=== PATIENT | female | born 1960 | race American Indian/Alaskan Native ===

== ENCOUNTER 2017-07-31 22:38 | Observation (INO) | payer MEDICARE, OTHER ==
[2017-07-31 22:52] VITALS: BMI 31.6
--- NOTE | 2017-07-31 23:16 | ED PDOC ---
Arrival/HPI - General Chief Complaint: Upper Extremity Problem/Injury Time Seen by Provider: 07/31/17 22:50 Historian: Patient - History of Present Illness Narrative History of Present Illness (Text): 07/31/17 23:13 A 57 year old female whose past medical history includes, hypertension and lung CA, presents to the emergency department with 1 week duration neck, upper back, and right arm pain. She denies fevers, chills, headache, cough, contrary to triage no abdominal pain, nausea, vomiting, diarrhea, chest pain, shortness of breath, or any other complaint. Time/Duration: 1 week Symptom Onset: Sudden Symptom Course: Unchanged Activities at Onset: Rest, Light Context: Home Past Medical History - Provider Review Nursing Documentation Reviewed: Yes - Cardiac Hx Hypertension: Yes - Pulmonary Hx Respiratory Disorders: No Other/Comment: hx lung ca - Neurological Hx Neurological Disorder: No - HEENT Hx HEENT Disorder: No - Renal Hx Renal Disorder: No - Endocrine/Metabolic Hx Endocrine Disorders: No - Hematological/Oncological Hx Blood Disorders: No - Integumentary Hx Dermatological Disorder: No - Musculoskeletal/Rheumatological Hx Musculoskeletal Disorders: No - Gastrointestinal Hx Gastrointestinal Disorders: No - Genitourinary/Gynecological Hx Genitourinary Disorders: No - Psychiatric Hx Psychophysiologic Disorder: No Hx Substance Use: No - Surgical History Hx Section: Yes Hx Cholecystectomy: Yes Other/Comment: Hx partial lung removal, lung ca - Anesthesia Hx Anesthesia: Yes Hx Anesthesia Reactions: No Family/Social History - Physician Review Nursing Documentation Reviewed: Yes Family/Social History: denies: CAD/AL Smoking Status: Never Smoked Hx Alcohol Use: No Hx Substance Use: No Allergies/Home Meds Allergies/Adverse Reactions: Allergies No Known Allergies Allergy (Verified 07/31/17 22:51) Home Medications: Home Meds Medication Instructions Recorded Confirmed Lisinopril [Zestril] 20 mg PO DAILY 07/31/17 07/31/17 Review of Systems - Physician Review All systems were reviewed & negative as marked: Yes - Review of Systems Constitutional: absent: Fevers, Night Sweats Respiratory: absent: SOB, Cough Cardiovascular: absent: Chest Pain Gastrointestinal: absent: Abdominal Pain, Diarrhea, Nausea, Vomiting Musculoskeletal: Back Pain, Neck Pain, Other (right arm pain) Neurological: absent: Headache, Dizziness Physical Exam Vital Signs Temp Pulse Resp BP Pulse Ox 08/01/17 01:19 64 16 124/69 99 07/31/17 22:52 98.6 F 72 18 143/83 98 07/31/17 22:50 98.6 F 72 18 143/83 98 Appearance: Positive for: Well-Appearing, Non-Toxic, Comfortable Pain Distress: None Mental Status: Positive for: Alert and Oriented X 3 - Systems Exam Head: Present: Atraumatic Pupils: Present: PERRL Mouth: Present: Moist Mucous Membranes Neck: Present: Normal Range of Motion Respiratory/Chest: Present: Clear to Auscultation. No: Respiratory Distress, Accessory Muscle Use Cardiovascular: Present: Regular Rate and Rhythm Abdomen: No: Tenderness, Distention Back: Present: Normal Inspection Upper Extremity: Present: NORMAL PULSES Lower Extremity: No: Edema Neurological: Present: GCS=15, Motor Func Grossly Intact, Normal Sensory Function, Other (no focal deficits) Skin: Present: Warm, Dry Psychiatric: Present: Alert, Oriented x 3 Medical Decision Making ED Course and Treatment: 07/31/17 23:11 Impression: A 57 year old female with 1 week duration neck, upper back, and right arm pain. Plan: -- EKG -- Chest X-Ray -- Labs -- Flexeril and Toradol -- Reassess and disposition Progress Notes: EKG: Ordered, reviewed, and independently interpreted the EKG. Rate : 64 BPM Rhythm : NSR Interpretation : Normal axis. Normal intervals. No acute ischemia. - Lab Interpretations Lab Results: 07/31/17 23:10 07/31/17 23:10 Lab Results 07/31/17 23:59: Urine Osmolality 276, Ur Random Sodium 45 07/31/17 23:59: Serum Osmolality 261 L 07/31/17 23:10: WBC 9.8, RBC 3.80, Hgb 11.8 L, Hct 34.3 L, MCV 90.3, MCH 31.1, MCHC 34.4, RDW 12.8, Plt Count 284, MPV 10.7, Gran % 58.9, Lymph % (Auto) 28.4, Heard % (Auto) 10.2 H, Eos % (Auto) 2.0, Baso % (Auto) 0.5, Gran # 5.80, Lymph # 2.8, Heard # 1.0 H, Eos # 0.2, Baso # 0.05 07/31/17 23:10: Sodium 122 L, Potassium 4.0, Chloride 86 L, Carbon Dioxide 24, Anion Gap 16, BUN 19, Creatinine 1.3, Est GFR ( Amer) 51, Est GFR (Non- Af Amer) 42, Random Glucose 85, Calcium 9.1, Total Bilirubin 0.6, AST 28, ALT 27 , Alkaline Phosphatase 80, Troponin I < 0.01, Total Protein 7.6, Albumin 4.3, Globulin 3.3, Albumin/Globulin Ratio 1.3 I have reviewed the lab results: Yes - RAD Interpretation Radiology Orders: 07/31/17 23:12 CHEST PORTABLE [RAD] Stat - EKG Interpretation Interpreted by ED Physician: Yes Type: 12 lead EKG - Medication Orders Current Medication Orders: Discontinued Medications Cyclobenzaprine HCl (Flexeril) 10 mg PO STAT STA Stop: 07/31/17 23:13 Last Admin: 07/31/17 23:27 Dose: 10 mg Heparin Sodium (Porcine) (Heparin) 5,000 units SC Q8 [facility] PRN Reason: Protocol Last Admin: 08/02/17 06:46 Dose: 5,000 units Sodium Chloride (Sodium Chloride 0.9%) 1,000 mls @ 999 mls/hr IV .Q1H1M STA Stop: 08/01/17 00:46 Last Admin: 08/01/17 00:17 Dose: 999 mls/hr Sodium Chloride (Sodium Chloride 0.9%) 1,000 mls @ 75 mls/hr IV .[id number] [facility] Last Admin: 08/01/17 17:08 Dose: 75 mls/hr Ibuprofen (Motrin Tab) 400 mg PO ONCE ONE Stop: 08/02/17 09:20 Last Admin: 08/02/17 11:22 Dose: 400 mg Ketorolac Tromethamine (Toradol) 10 mg IVP STAT STA Stop: 07/31/17 23:13 Last Admin: 07/31/17 23:27 Dose: 10 mg Re-Assess: ROX Pain Assessment Document 08/01/17 00:27 [place] (Rec: 08/01/17 01:24 [id number] Pain Reassessment Is this a pain reassessment? Yes Sleep Is patient sleeping during reassessment? No Presence of Pain Presence of Pain Yes Pain Scale Used Pain Scale Used Numeric Description Intensity of Pain at present 3 Magnesium Hydroxide (Milk Of Magnesia) 15 ml PO ONCE ONE Stop: 08/02/17 09:23 Last Admin: 08/02/17 11:21 Dose: 15 ml Pantoprazole Sodium (Protonix Ec Tab) 40 mg PO 0600,1600 ANNA Last Admin: 08/02/17 06:46 Dose: 40 mg Senna/Docusate Sodium (Senokot S 50 Mg-8.6 Mg) 1 tab PO BID ANNA Last Admin: 08/02/17 09:08 Dose: 1 tab Zolpidem Tartrate (Ambien) 5 mg PO STAT STA PRN Reason: Protocol Stop: 08/01/17 02:31 Last Admin: 08/01/17 02:47 Dose: 5 mg Re-Assess: Reassess Psych Meds Document 08/01/17 03:47 [place] (Rec: 08/01/17 05:19 [place] [id number]) Reassess Psych Med Effective Zolpidem Tartrate (Ambien) 5 mg PO HS PRN; Protocol PRN Reason: Insomnia Last Admin: 08/01/17 21:06 Dose: 5 mg - Scribe Statement The provider has reviewed the documentation as recorded by the Izabel Bennett Provider Scribe Attestation: All medical record entries made by the Scribe were at my direction and personally dictated by me. I have reviewed the chart and agree that the record accurately reflects my personal performance of the history, physical exam, medical decision making, and the department course for this patient. I have also personally directed, reviewed, and agree with the discharge instructions and disposition Disposition/Present on Arrival - Present on Arrival Any Indicators Present on Arrival: No History of DVT/PE: No History of Uncontrolled Diabetes: No Urinary Catheter: No History of Decub. Ulcer: No History Surgical Site Infection Following: None - Disposition Have Diagnosis and Disposition been Completed?: Yes Diagnosis: Hyponatremia Disposition: HOSPITALIZED Disposition Time: 00:12 Condition: STABLE
[2017-07-31 23:24] LABS: BASO # 0.05 K/mm3 (0.0-2.0); BASO % 0.5 % (0.0-3.0); EOS # 0.2 (0.0-0.7); GRAN # 5.8 (1.4-6.5); GRAN % 58.9 % (50.0-68.0); HEMATOCRIT 34.3 % (36.0-48.0); LYMPH # 2.8 (1.2-3.4); LYMPH % 28.4 % (22.0-35.0); MEAN CELL VOLUME 90.3 fl (80.0-105.0); MEAN CORPUSCULAR HEMOGLOBIN 31.1 pg (25.0-35.0); MEAN CORPUSCULAR HGB CONC 34.4 g/dl (31.0-37.0); MEAN PLATELET VOLUME 10.7 fl (7.0-11.0); MONO % 10.2 % (1.0-6.0); RED CELL DISTRIBUTION WIDTH 12.8 % (11.5-14.5); WHITE BLOOD COUNT 9.8 10^3/ul (4.5-11.0)
[2017-07-31 23:39] LABS: ALB/GLOB RATIO 1.3 (1.1-1.8); ALKALINE PHOSPHATASE 80 U/L (38-126); ALT/SGPT 27 U/L (7-56); AST/SGOT 28 U/L (14-36); BILIRUBIN,TOTAL 0.6 mg/dL (0.2-1.3); BLOOD UREA NITROGEN 19 mg/dL (7-21); CALCIUM 9.1 mg/dL (8.4-10.5); CARBON DIOXIDE 24 mmol/L (21-33); CHLORIDE 86 mmol/L (98-107); GFR AFRICAN-AMERICAN 51; GLUCOSE,RANDOM 85 mg/dL (70-110); SODIUM 122 mmol/L (132-148); TOTAL PROTEIN 7.6 g/dL (5.8-8.3)
[2017-07-31] MEDS ORDERED: Sodium Chloride 0.9% 1,000 ML IV STA (23:46)
[2017-07-31 23:50] LABS: TROPONIN I < 0.01 ng/mL
[2017-08-01] MEDS: Sodium Chloride 0.9% 1,000 ML IV SCH ×2 (02:49→17:08)
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
[2017-08-01] MEDS: Pantoprazole 40 mg EC Tab PO SCH ×2 (05:19→17:08)
[2017-08-01 06:50] LABS: HEMATOCRIT 32.3 % (36.0-48.0); MEAN CELL VOLUME 90.7 fl (80.0-105.0); MEAN CORPUSCULAR HEMOGLOBIN 30.3 pg (25.0-35.0); MEAN CORPUSCULAR HGB CONC 33.4 g/dl (31.0-37.0); WHITE BLOOD COUNT 7.8 10^3/ul (4.5-11.0)
[2017-08-01 06:59] LABS: URIC ACID 7.6 mg/dL (2.5-6.2)
[2017-08-01 07:08] LABS: ALB/GLOB RATIO 1.2 (1.1-1.8); BILIRUBIN,TOTAL 0.6 mg/dL (0.2-1.3); CALCIUM 8.7 mg/dL (8.4-10.5); POTASSIUM 3.9 mmol/L (3.6-5.0); TOTAL PROTEIN 6.7 g/dL (5.8-8.3)
[2017-08-01 07:11] LABS: FREE T4 1.25 ng/dL (0.78-2.19)
[2017-08-01 07:25] LABS: THYROID STIMULATING HORMONE 2.02 mIU/mL (0.46-4.68)
[2017-08-01 08:03] VITALS: O2SAT 100
--- NOTE | 2017-08-01 08:41 | RAD ---
HISTORY: shoulder pain COMPARISON: No prior. FINDINGS: LUNGS: Bone loss of the right lung is appreciated which may be chronic. Fibrotic changes in the right base which may also reflect blunting the right costophrenic sulcus though a trace right pleural effusions not completely excluded. None is seen the left. There is no pneumothorax. Mediastinum and shifted toward the right. No definite acute infiltrate is identified bilaterally. PLEURA: See discussion above. CARDIOVASCULAR: Normal. OSSEOUS STRUCTURES: No significant abnormalities. VISUALIZED UPPER ABDOMEN: Normal. OTHER FINDINGS: None. IMPRESSION: Right pulmonary volume loss likely is a function of right basilar fibrosis with trace right pleural effusion not completely excluded. No acute infiltrate bilaterally. No acute cardiac disease appreciable.
--- NOTE | 2017-08-01 09:22 | CT ---
PROCEDURE: CT HEAD WITHOUT CONTRAST. HISTORY: lung cancer, hyponatremia. COMPARISON: None available. TECHNIQUE: Axial computed tomography images were obtained through the head/brain without intravenous contrast. Radiation dose: Total exam DLP = 735 mGy-cm. This CT exam was performed using one or more of the following dose reduction techniques: Automated exposure control, adjustment of the mA and/or kV according to patient size, and/or use of iterative reconstruction technique. FINDINGS: HEMORRHAGE: No intracranial hemorrhage. BRAIN: No mass effect or edema. No atrophy or chronic microvascular ischemic changes. VENTRICLES: Unremarkable. No hydrocephalus. CALVARIUM: Unremarkable. PARANASAL SINUSES: Unremarkable as visualized. No significant inflammatory changes. MASTOID AIR CELLS: Unremarkable as visualized. No inflammatory changes. OTHER FINDINGS: None. IMPRESSION: No acute findings
--- NOTE | 2017-08-01 11:30 | CARD ---
APPROVED REPORT EKG Measurement Heart [id number] <Conclusion> Normal sinus rhythm Normal ECG
[2017-08-01 12:08] LABS: CORTISOL AM 11.7 ug/dL (4.46-22.7)
--- NOTE | 2017-08-01 14:31 | CT ---
PROCEDURE: CT Cervical Spine without contrast HISTORY: Cervical pain COMPARISON: None available. TECHNIQUE: Axial computed tomography images were obtained of the cervical spine without the use of intravenous contrast. Coronal and sagittal reformatted images were created and reviewed. Radiation dose: Total exam DLP = 605 mGy-cm. This CT exam was performed using one or more of the following dose reduction techniques: Automated exposure control, adjustment of the mA and/or kV according to patient size, and/or use of iterative reconstruction technique. FINDINGS: VERTEBRAE: No fracture. Normal alignment. No destructive bony lesion. DISCS/SPINAL CANAL/NEURAL FORAMINA: No significant central canal or neural foraminal stenosis. Small central protrusion mild stenosis C2-3. C3-4 moderate central stenosis and severe left-sided foraminal stenosis C4-5 large central disc protrusion with severe spinal stenosis. Axial image 46 series 2. C5-6 moderate central protrusion and spinal stenosis PARASPINAL SOFT TISSUES: Unremarkable. OTHER FINDINGS: None. IMPRESSION: Multilevel spinal stenosis and disc protrusions most severe at C4-5.
--- NOTE | 2017-08-01 14:38 | CT ---
PROCEDURE: CT Chest without contrast HISTORY: right shoulder/mid back pain with h/o lung CA COMPARISON: None. TECHNIQUE: Contiguous axial images were obtained through the chest without intravenous contrast enhancement. Sagittal and coronal reconstructions were performed. Radiation dose (DLP): 470 mGy-cm. This CT exam was performed using one or more of the following dose reduction techniques: Automated exposure control, adjustment of the mA and/or kV according to patient size, and/or use of iterative reconstruction technique. FINDINGS: LUNGS: There is some linear scarring at the right lung base. Surgical clips are seen in the right hilum MEDIASTINUM: Unremarkable thoracic aorta. No aneurysm. Normal sized heart. Main pulmonary artery unremarkable. No vascular congestion. No lymphadenopathy. PLEURA: No pleural fluid. No pneumothorax. BONES: No fracture. No destructive lesion. UPPER ABDOMEN: Grossly unremarkable. OTHER FINDINGS: None. IMPRESSION: Unremarkable non-contrast enhanced CT of the chest.
--- NOTE | 2017-08-01 15:58 | CP.PCM.CON ---
History of Present Illness - History of Present Illness History of Present Illness: 57 yo F w/ pmh of lung CA s/p partial R lung resection and chemotherapy (2013) presented with new onset of back pain since ~1 week and R shoulder pain that started day before presentation; found to be hyponatremic to 122, nephrology therefore being consulted; Patient reports being in her usual state of health until about 1 week ago when she started feeling the above symptoms; she went to her pmd's office and was started on anti-htn meds (reports being seen by someone other than her pmd) lisinopril and norvasc; she took the norvasc for one day but said it made her feel ill and so she discontinued it; she did continue to take the lisinopril but only half the dose; patient reports some dry cough that started over past few days; she otherwise denies ever being found to have high blood pressure; she follows every 6 months with her pmd and gets blood work done there routinely ; For pain, patient reports only having taken Tylenol; Patient does report drinking about 6-8 regular sized bottles of water daily as per her usual routine; she urinates about 3 times per night; Review of Systems - Constitutional Constitutional: Night Sweats. absent: Anorexia, Fatigue - EENT Eyes: absent: Change in Vision Nose/Mouth/Throat: absent: Nasal Discharge, Sore Throat - Cardiovascular Cardiovascular: absent: Chest Pain, Dyspnea, Leg Edema - Respiratory Respiratory: Cough. absent: Dyspnea on Exertion - Gastrointestinal Gastrointestinal: absent: Diarrhea, Nausea, Vomiting - Genitourinary Genitourinary: absent: Difficulty Urinating, Dysuria - Reproductive: Female Reproductive:Female: absent: Menopausal - Musculoskeletal Musculoskeletal: As Per HPI Additional comments: R knee intermittent pain; denies swelling in joints; - Psychiatric Psychiatric: absent: Anxiety, Depression - Hematologic/Lymphatic Hematologic: absent: Easy Bruising Past Patient History - Past Medical History & Family History Past Medical History?: Yes Pertinent Family History: Mother - htn - Past Social History Smoking Status: Never Smoked Alcohol: None Drugs: Denies - CARDIAC Hx Cardiac Disorders: Yes Hx Hypertension: Yes - PULMONARY Hx Respiratory Disorders: Yes Hx Lung Cancer: Yes (2012; s/p resection and chemo in 2013) Other/Comment: hx lung ca - NEUROLOGICAL Hx Neurological Disorder: No - HEENT Hx HEENT Problems: No - RENAL Hx Chronic Kidney Disease: No - ENDOCRINE/METABOLIC Hx Endocrine Disorders: No - HEMATOLOGICAL/ONCOLOGICAL Hx Cancer: Yes (Lung) - INTEGUMENTARY Hx Dermatological Problems: No - MUSCULOSKELETAL/RHEUMATOLOGICAL Hx Falls: No - GASTROINTESTINAL Hx Gastrointestinal Disorders: No - GENITOURINARY/GYNECOLOGICAL Hx Genitourinary Disorders: No - PSYCHIATRIC Hx Substance Use: No - SURGICAL HISTORY Hx Surgeries: Yes (Part lung removal RLL) Hx Cholecystectomy: Yes - ANESTHESIA Hx Anesthesia: Yes Hx Anesthesia Reactions: No Meds Allergies/Adverse Reactions: Allergies Allergy/AdvReac Type Severity Reaction Status Date / Time No Known Allergies Allergy Verified 07/31/17 22:51 - Medications Medications: Current Medications Heparin Sodium (Porcine) (Heparin) 5,000 units SC Q8 ANNA PRN Reason: Protocol Last Admin: 08/01/17 14:29 Dose: 5,000 units Sodium Chloride (Sodium Chloride 0.9%) 1,000 mls @ 75 mls/hr IV .[id number] [facility] Last Admin: 08/01/17 02:49 Dose: 75 mls/hr Pantoprazole Sodium (Protonix Ec Tab) 40 mg PO 0600,1600 [facility] Last Admin: 08/01/17 05:19 Dose: 40 mg Zolpidem Tartrate (Ambien) 5 mg PO HS PRN; Protocol PRN Reason: Insomnia Physical Exam - Constitutional Appears: Non-toxic, No Acute Distress - Head Exam Head Exam: NORMAL INSPECTION - Eye Exam Eye Exam: absent: Scleral icterus - ENT Exam ENT Exam: Mucous Membranes Moist - Neck Exam Neck exam: Positive for: Normal Inspection. Negative for: Lymphadenopathy - Respiratory Exam Respiratory Exam: Clear to Auscultation Bilateral, NORMAL BREATHING PATTERN. absent: Rales, Rhonchi, Wheezes, Respiratory Distress - Cardiovascular Exam Cardiovascular Exam: RRR, +S1, +S2 - GI/Abdominal Exam GI & Abdominal Exam: Soft. absent: Distended, Tenderness - Exam Exam: absent: Bladder Distension - Extremities Exam Extremities exam: Positive for: normal capillary refill, pedal pulses present Additional comments: no lower leg edema; - Neurological Exam Neurological exam: Alert, Oriented x3 Additional comments: no foot numbness; - Psychiatric Exam Psychiatric exam: Normal Affect, Normal Mood - Skin Skin Exam: Normal Color, Warm Results - Vital Signs Recent Vital Signs: Last Vital Signs Temp 97.7 F 08/01/17 08:03 Pulse 68 08/01/17 14:00 Resp 20 08/01/17 08:03 BP 143/92 H 08/01/17 08:03 Pulse Ox 100 08/01/17 08:03 - Labs Result Diagrams: 08/01/17 06:00 08/01/17 06:00 Labs: Laboratory Results - last 24 hr 08/01/17 08/01/17 08/01/17 06:00 06:00 06:00 WBC 7.8 D RBC 3.56 Hgb 10.8 L Hct 32.3 L MCV 90.7 MCH 30.3 MCHC 33.4 RDW 13.0 Plt Count 263 MPV 11.0 APTT Sodium Potassium Chloride Carbon Dioxide Anion Gap BUN Creatinine Est GFR ( Amer) Est GFR (Non-Af Amer) Random Glucose Uric Acid 7.6 H Calcium Total Bilirubin AST ALT Alkaline Phosphatase Total Protein Albumin Globulin Albumin/Globulin Ratio Triglycerides 45 Cholesterol 187 LDL Cholesterol Direct 91 HDL Cholesterol 69 H Free T4 1.25 TSH 3rd Generation 2.02 Cortisol AM Sample 11.7 08/01/17 08/01/17 06:00 06:00 WBC RBC Hgb Hct MCV MCH MCHC RDW Plt Count MPV APTT 29.4 Sodium 125 L Potassium 3.9 Chloride 89 L Carbon Dioxide 26 Anion Gap 14 BUN 18 Creatinine 1.3 Est GFR ( Amer) 51 Est GFR (Non-Af Amer) 42 Random Glucose 82 Uric Acid Calcium 8.7 Total Bilirubin 0.6 AST 33 ALT 29 Alkaline Phosphatase 67 Total Protein 6.7 Albumin 3.7 Globulin 3.1 Albumin/Globulin Ratio 1.2 Triglycerides Cholesterol LDL Cholesterol Direct HDL Cholesterol Free T4 TSH 3rd Generation Cortisol AM Sample - Imaging and Cardiology Chest x-ray Status: Image reviewed by me Additional comment: lungs clear; Assessment & Plan (1) Hyponatremia Assessment and Plan: Moderate hyponatremia on presentation; Ur osm obtained soon after presentation is inappropriately high for hyponatremia (ie. the normal physiologic response to hyponatremia is to maximally dilute the urine to Ur osm < 100) and represents increased circulating ADH levels which can also occur with volume depletion or any setting in which there is decreased renal perfusion (eg. advanced CHF); while patient appears euvolemic on exam currently after having received IVF, cannot rule out some degree of volume depletion on presentation, especially with her having been on prinzide (lisinopril-hctz combo, confirmed from her pharmacy at [facility] in [place]); med had just been started ~1 week ago and patient with regular medical f/u has no previous history of hyponatremia ; furthermore, patient's habit of drinking excess amounts of water exacerbated the hyponatremia (although not quite high enough consumption to call it psychogenic polydipsia in which case Ur osm would have been much lower); -continue NS at 75 cc/hr -repeating Ur Na and osm -should avoid thiazide diuretics Status: Acute (2) Back pain Assessment and Plan: Unclear reason for new onset of back pain; recommend to avoid NSAIDS as they can potentiate the effect of ADH; Status: Acute (3) HTN (hypertension) Assessment and Plan: Increased BP may be due to pain as patient denies previous history of htn; reports feeling ill with just one dose of norvasc (may be coincidental); would recommend to control pain before re-starting any anti-htn meds; Status: Acute (4) CKD (chronic kidney disease) Assessment and Plan: CKD IIIA per current labs although baseline unknown; patient also reports what seems like mild CASIE due to IV contrast in the past; also possibility of mild pre -renal picture currently in the setting of being on thiazide with loss of renal autoregulation with being on DANIEL-inhbitor; -obtain previous labs from pmd -check UA -checking random urine protein, microalbumin and creatinine -if renal function doesn't improve with volume expansion, should obtain renal US (can be done as outpatient) Status: Acute
[2017-08-01] MEDS: Docusate-Senna 50 mg-8.6 mg Tab PO SCH (17:08)
[2017-08-02] MEDS: Pantoprazole 40 mg EC Tab PO SCH (06:46)
[2017-08-02 06:49] LABS: ALB/GLOB RATIO 1.2 (1.1-1.8); BILIRUBIN,TOTAL 0.4 mg/dL (0.2-1.3); TOTAL PROTEIN 6.6 g/dL (5.8-8.3)
[2017-08-02 06:53] LABS: HEMATOCRIT 32.2 % (36.0-48.0); MEAN CELL VOLUME 91.5 fl (80.0-105.0); MEAN CORPUSCULAR HEMOGLOBIN 30.1 pg (25.0-35.0); MEAN CORPUSCULAR HGB CONC 32.9 g/dl (31.0-37.0); MEAN PLATELET VOLUME 10.8 fl (7.0-11.0); RED CELL DISTRIBUTION WIDTH 13.3 % (11.5-14.5); WHITE BLOOD COUNT 5.8 10^3/ul (4.5-11.0)
[2017-08-02] MEDS: Docusate-Senna 50 mg-8.6 mg Tab PO SCH (09:08)
[2017-08-02] MEDS ORDERED: Magnesium Hydroxide Susp 30 ml UD PO ONE (09:22)
[2017-08-02 09:50] VITALS: BP 133/81; PULSE 20; RESP 60; TEMP 98
--- NOTE | 2017-08-02 12:22 | CP.PCM.DIS ---
<Alexis Mcpherson - Last Filed: 08/02/17 12:55> Provider - Provider Date of Admission: 08/01/17 00:12 Attending physician: Manri Emery MD Primary care physician: Martha Wellington MD Time Spent in preparation of Discharge (in minutes): 45 Diagnosis - Discharge Diagnosis (1) Back pain Status: Chronic (2) CKD (chronic kidney disease) Status: Chronic (3) HTN (hypertension) Status: Chronic (4) Hyponatremia Status: Resolved Hospital Course - Lab Results Lab Results: Most Recent Lab Values WBC 5.8 10^3/ul (4.5-11.0) D 08/02/17 06:31 RBC 3.52 10^6/uL (3.5-6.1) 08/02/17 06:31 Hgb 10.6 g/dL (12.0-16.0) L 08/02/17 06:31 Hct 32.2 % (36.0-48.0) L 08/02/17 06:31 MCV 91.5 fl (80.0-105.0) 08/02/17 06:31 MCH 30.1 pg (25.0-35.0) 08/02/17 06:31 MCHC 32.9 g/dl (31.0-37.0) 08/02/17 06:31 RDW 13.3 % (11.5-14.5) 08/02/17 06:31 Plt Count 259 10^3/uL (120.0-450.0) 08/02/17 06:31 MPV 10.8 fl (7.0-11.0) 08/02/17 06:31 Gran % 58.9 % (50.0-68.0) 07/31/17 23:10 Lymph % (Auto) 28.4 % (22.0-35.0) 07/31/17 23:10 Zavala % (Auto) 10.2 % (1.0-6.0) H 07/31/17 23:10 Eos % (Auto) 2.0 % (1.5-5.0) 07/31/17 23:10 Baso % (Auto) 0.5 % (0.0-3.0) 07/31/17 23:10 Gran # 5.80 (1.4-6.5) 07/31/17 23:10 Lymph # 2.8 (1.2-3.4) 07/31/17 23:10 Zavala # 1.0 (0.1-0.6) H 07/31/17 23:10 Eos # 0.2 (0.0-0.7) 07/31/17 23:10 Baso # 0.05 K/mm3 (0.0-2.0) 07/31/17 23:10 APTT 29.4 Seconds (23.7-30.8) 08/01/17 06:00 Sodium 132 mmol/L (132-148) 08/02/17 06:31 Potassium 4.0 mmol/L (3.6-5.0) 08/02/17 06:31 Chloride 99 mmol/L (98-107) 08/02/17 06:31 Carbon Dioxide 25 mmol/L (21-33) 08/02/17 06:31 Anion Gap 12 (10-20) 08/02/17 06:31 BUN 23 mg/dL (7-21) H 08/02/17 06:31 Creatinine 1.3 mg/dL (0.5-1.4) 08/02/17 06:31 Est GFR ( Amer) 51 08/02/17 06:31 Est GFR (Non-Af Amer) 42 08/02/17 06:31 Random Glucose 81 mg/dL (70-110) 08/02/17 06:31 Serum Osmolality 261 mosm/kg (271-296) L 07/31/17 23:59 Uric Acid 7.6 mg/dL (2.5-6.2) H 08/01/17 06:00 Calcium 9.0 mg/dL (8.4-10.5) 08/02/17 06:31 Total Bilirubin 0.4 mg/dL (0.2-1.3) 08/02/17 06:31 AST 25 U/L (14-36) 08/02/17 06:31 ALT 26 U/L (7-56) 08/02/17 06:31 Alkaline Phosphatase 65 U/L (38-126) 08/02/17 06:31 Troponin I < 0.01 ng/mL 07/31/17 23:10 Total Protein 6.6 g/dL (5.8-8.3) 08/02/17 06:31 Albumin 3.6 g/dL (3.0-4.8) 08/02/17 06:31 Globulin 3.0 gm/dL 08/02/17 06:31 Albumin/Globulin Ratio 1.2 (1.1-1.8) 08/02/17 06:31 Triglycerides 45 mg/dL (35-160) 08/01/17 06:00 Cholesterol 187 mg/dL (130-200) 08/01/17 06:00 LDL Cholesterol Direct 91 mg/dL (0-129) 08/01/17 06:00 HDL Cholesterol 69 mg/dL (29-60) H 08/01/17 06:00 Free T4 1.25 ng/dL (0.78-2.19) 08/01/17 06:00 TSH 3rd Generation 2.02 mIU/mL (0.46-4.68) 08/01/17 06:00 Cortisol AM Sample 11.7 ug/dL (4.46-22.7) 08/01/17 06:00 Urine Osmolality 178 mosm/kg (50-645) 08/01/17 22:30 Ur Random Sodium 35 meq/L 08/01/17 22:30 - Hospital Course Hospital Course: Ms. Bowers is a 57 yo F with PMH significant for lung CA (adenocarcinoma), who reported 1 week history of intermittent pain to the neck, back, and R arm, most notably with increased and more constant pain to the R shoulder today. Pt described the pain as sharp, rated 8/10, that is worse with positional changes. Pt was seen in the ED for her pain, was treated with IV Flexeril & Toradol, had labs/CXR/EKGs done, and was incidentally found to be hyponatremic (Na = 122) and received 1L NS bolus in ED. Troponins were negative and so was the Chest Xray. Of note, pt stated that 2 weeks ago, she saw her PMD for her back pain, and at the time was found to be hypertensive in the office (systolic BP in 180's ), and was started on Lisinopril 20 mg & Amlodipine. She stated that she stopped taking the Amlodipine and started taking only 10mg of Lisinopril because it was making her "feel funny" and having a dry cough. She also admitted to drinking a lot of water (7-8 bottles per day but is unsure how big they are), causing her to even urinate 3x during the night. Pt denied recent headaches, light headedness, delirium, muscle twitching, weakness, N/V/D, chest pain, recent illnesses, fevers, vision changes, diaphoresis, sob. In the ED, she reported no pain. Chest CT was obtained and was negative. Next a C-Spine was obtained and was positive for degenerate changes and multilevel spinal stenosis. Nephrology was consulted for the hyponatremia and they determined that the hyponatremia which was present is seen with volume depletion or any setting in which there is decreased renal perfusion (eg. advanced CHF); furthermore, patient's habit of drinking excess amounts of water exacerbated the hyponatremia (although not quite high enough consumption to call it psychogenic polydipsia in which case Ur osm would have been much lower. Hyponatremia was subsequently resolved. Patient was also advised to see neurosurgery as an outpatient. - Date & Time of H&P Date of H&P: 08/02/17 Time of H&P: 07:30 Discharge Exam - Head Exam Head Exam: NORMAL INSPECTION - Respiratory Exam Respiratory Exam: NORMAL BREATHING PATTERN, UNREMARKABLE - Cardiovascular Exam Cardiovascular Exam: +S1, +S2 - GI/Abdominal Exam GI & Abdominal Exam: Unremarkable - Neurological Exam Neurological exam: Oriented x3 - Psychiatric Exam Psychiatric exam: Normal Mood Discharge Plan - Discharge Medications Prescriptions: Docusate Sodium/Sennosides A [Senokot S 50 MG-8.6 MG] 1 tab PO BID #60 tab - Follow Up Plan Condition: GOOD Disposition: HOME/ ROUTINE Instructions: Hyponatremia (DC), Chronic Hypertension (DC), Back Pain (GEN) Additional Instructions: Patient should take senna at home for constipation and continue her lisinopril. Per the attending, patient should follow up with neurosurgery as outpatient. Referrals: Martha Wellington MD [Primary Care Provider] - Jeremiah Cash MD [Staff Provider] - <Irina Wetzel - Last Filed: 08/02/17 18:02> Provider - Provider Date of Admission: 08/01/17 00:12 Attending physician: Marni Emery MD Primary care physician: Martha Wellington MD Hospital Course - Lab Results Lab Results: Most Recent Lab Values WBC 5.8 10^3/ul (4.5-11.0) D 08/02/17 06:31 RBC 3.52 10^6/uL (3.5-6.1) 08/02/17 06:31 Hgb 10.6 g/dL (12.0-16.0) L 08/02/17 06:31 Hct 32.2 % (36.0-48.0) L 08/02/17 06:31 MCV 91.5 fl (80.0-105.0) 08/02/17 06:31 MCH 30.1 pg (25.0-35.0) 08/02/17 06:31 MCHC 32.9 g/dl (31.0-37.0) 08/02/17 06:31 RDW 13.3 % (11.5-14.5) 08/02/17 06:31 Plt Count 259 10^3/uL (120.0-450.0) 08/02/17 06:31 MPV 10.8 fl (7.0-11.0) 08/02/17 06:31 Gran % 58.9 % (50.0-68.0) 07/31/17 23:10 Lymph % (Auto) 28.4 % (22.0-35.0) 07/31/17 23:10 Zavala % (Auto) 10.2 % (1.0-6.0) H 07/31/17 23:10 Eos % (Auto) 2.0 % (1.5-5.0) 07/31/17 23:10 Baso % (Auto) 0.5 % (0.0-3.0) 07/31/17 23:10 Gran # 5.80 (1.4-6.5) 07/31/17 23:10 Lymph # 2.8 (1.2-3.4) 07/31/17 23:10 Zavala # 1.0 (0.1-0.6) H 07/31/17 23:10 Eos # 0.2 (0.0-0.7) 07/31/17 23:10 Baso # 0.05 K/mm3 (0.0-2.0) 07/31/17 23:10 APTT 29.4 Seconds (23.7-30.8) 08/01/17 06:00 Sodium 132 mmol/L (132-148) 08/02/17 06:31 Potassium 4.0 mmol/L (3.6-5.0) 08/02/17 06:31 Chloride 99 mmol/L (98-107) 08/02/17 06:31 Carbon Dioxide 25 mmol/L (21-33) 08/02/17 06:31 Anion Gap 12 (10-20) 08/02/17 06:31 BUN 23 mg/dL (7-21) H 08/02/17 06:31 Creatinine 1.3 mg/dL (0.5-1.4) 08/02/17 06:31 Est GFR ( Amer) 51 08/02/17 06:31 Est GFR (Non-Af Amer) 42 08/02/17 06:31 Random Glucose 81 mg/dL (70-110) 08/02/17 06:31 Serum Osmolality 261 mosm/kg (271-296) L 07/31/17 23:59 Uric Acid 7.6 mg/dL (2.5-6.2) H 08/01/17 06:00 Calcium 9.0 mg/dL (8.4-10.5) 08/02/17 06:31 Total Bilirubin 0.4 mg/dL (0.2-1.3) 08/02/17 06:31 AST 25 U/L (14-36) 08/02/17 06:31 ALT 26 U/L (7-56) 08/02/17 06:31 Alkaline Phosphatase 65 U/L (38-126) 08/02/17 06:31 Troponin I < 0.01 ng/mL 07/31/17 23:10 Total Protein 6.6 g/dL (5.8-8.3) 08/02/17 06:31 Albumin 3.6 g/dL (3.0-4.8) 08/02/17 06:31 Globulin 3.0 gm/dL 08/02/17 06:31 Albumin/Globulin Ratio 1.2 (1.1-1.8) 08/02/17 06:31 Triglycerides 45 mg/dL (35-160) 08/01/17 06:00 Cholesterol 187 mg/dL (130-200) 08/01/17 06:00 LDL Cholesterol Direct 91 mg/dL (0-129) 08/01/17 06:00 HDL Cholesterol 69 mg/dL (29-60) H 08/01/17 06:00 Free T4 1.25 ng/dL (0.78-2.19) 08/01/17 06:00 TSH 3rd Generation 2.02 mIU/mL (0.46-4.68) 08/01/17 06:00 Cortisol AM Sample 11.7 ug/dL (4.46-22.7) 08/01/17 06:00 Urine Osmolality 178 mosm/kg (50-645) 08/01/17 22:30 Ur Random Sodium 35 meq/L 08/01/17 22:30 Urine Microalbumin < 6.0 mg/L (0.0-16.6) 08/01/17 22:30 Attending/Attestation - Attestation I have personally seen and examined this patient.: Yes I have fully participated in the care of the patient.: Yes I have reviewed all pertinent clinical information, including history, physical exam and plan: Yes Notes (Text): 08/02/17 18:01 patient seen and examined at bedside. Labs, vitals and notes reviewed. No overnight issues reported. right shoulder discomfort better than admission, laxative prescribed for constipation, Sodium levels improved and dietary changes advised. Renal notes reviewed. Imaging reviewed. Agree with plan of care as outlined by the resident.
--- NOTE | 2017-08-02 19:06 | PN ---
DATE: NEPHROLOGY FOLLOWUP NOTE SUBJECTIVE: A 57-year-old female with past medical history significant for lung cancer with status post right lung partial resection in 2013, presented initially for back pain, admitted for hyponatremia, Nephrology following for the same. Patient reports feeling well. Back pain is improved. PHYSICAL EXAMINATION: VITAL SIGNS: This morning, blood pressure 133/81, heart rate 60, respirations 20, temperature 98.0 and O2 saturation 100% on room air. GENERAL: No distress. Conversing coherently in full sentences. HEENT: Moist mucous membranes. Nonicteric. RESPIRATORY: Lungs clear to auscultation bilaterally. No rales. No rhonchi. No wheezes. HEART: S1 and S2 normal. No murmurs, no gallops, no rubs. GASTROINTESTINAL: Abdomen soft, nontender, nondistended. EXTREMITIES: No lower leg edema. SKIN: Warm. No cyanosis. PSYCHIATRIC: Normal mood, normal affect. LABORATORY DATA: This morning, CBC: WBC 5.8, hemoglobin 10.6, hematocrit 32.2, platelets 259. Chemistry panel: Sodium 132, potassium 4.0, chloride 99, bicarbonate 25, BUN 23, creatinine 1.3, calcium 9.0, albumin 3.6. Urine, microalbumin from yesterday less than 6.0, no urine creatinine available. Urine osmolality from yesterday 178. ASSESSMENT AND PLAN: 1. Hyponatremia. The patient relatively euvolemic, but may have had some degree of volume contraction on presentation in the setting of being on thiazide diuretic, also with pain that may have increased circulating ADH levels, at the same time, hyponatremia likely exacerbated by patient's excessive water intake (although not quite at the level of psychogenic polydipsia). Sodium improved after volume repletion with normal saline. The patient counseled to decrease water intake in half, (was making 68 bottles of water per day, told to decrease down to 3 to 4). Should avoid thiazide diuretics. Should avoid NSAIDs for pain. She will follow up as outpatient with BMP in the next week to 10 days. 2. Hypertension. The patient with no longstanding history of hypertension, despite having regular medical followups, suspect elevated blood pressure readings are likely due to patient's pain, although I cannot make diagnosis of benign essential hypertension. The patient should not be on any hypertensive medications. She will follow up with regular PMD who can assess better and start medications gradually (it should be noted that the patient was started on 3 antihypertensive medications at once by someone who was not her PMD). 3. Chronic kidney disease stage IIIA. No baseline serum creatinine available but the serum creatinine has been steady at 1.3 during this admission. Appears to be non-proteinuric disease with almost undetectable levels of urine microalbumin. The patient should have renal ultrasound done as outpatient. We will follow up. The patient given our office number to make appointment. Jeremiah Cash MD
== END 2017-08-02 13:59 | disposition home or self-care (01) ==
LOC: ED 22:38 → ERH 08-01 00:12 → 3RNO 08-01 01:42
PROVIDERS: ADMIT Hospitalist; ATTEND Hospitalist
DX: E87.1 Hypo-osmolality and hyponatremia (principal); C34.91 Malignant neoplasm of unspecified part of right bronchus or lung; I13.0 Hypertensive heart and chronic kidney disease with heart failure and stage 1 through stage 4 chronic kidney disease, or unspecified chronic kidney disease; N18.3 Chronic kidney disease, stage 3 (moderate); I50.9 Heart failure, unspecified; M54.9 Dorsalgia, unspecified; Z88.0 Allergy status to penicillin
CPT/HCPCS: 36415; 70450; 71010; 71250; 72125; 80053; 80061; 82043; 82533; 82570; 83930; 83935; 84300; 84439; 84443; 84484; 84550; 85025; 85027; 85730; 93005; 96361; 96372; 96374; 99285; G0378; J1644; J1885; J7040